=== PATIENT | male | born 1960 | race Caucasian/White ===

== ENCOUNTER 2016-11-20 17:01 | Emergency (ER) | payer SELFPAY ==
[2016-11-20 18:04] VITALS: BP 144/73
--- NOTE | 2016-11-20 18:18 | UC ---
Knee Pain HPI - HPI Summary HPI Summary: slipped at work last night. Left knee twisted and he "did a split". Injured left hip, feels as if he tore groin muscles. Has had a right total knee replacement. Arthritis in left knee, but doesn't bother him too much. Did not fall directly onto left hip. Limping gait today. - History of Current Complaint Chief Complaint: UCLowerExtremity Stated Complaint: LEFT KNEE & HIP INJURY-WC Time Seen by Provider: 11/20/16 18:08 Hx Obtained From: Patient Onset/Duration: Sudden Onset, Lasting Hours - 24 Severity Initially: Moderate Severity Currently: Moderate Character: Dull, Aching, Stiffness Aggravating Factor(s): Movement, Weight Bearing, Prolonged Standing, Stairs Alleviating Factor(s): Rest, Position - slightly flexed Associated Signs And Symptoms: Negative: Swelling, Redness, Bruising, Fever, Weakness, Numbness, Tingling - Risk Factors Septic Arthritis Risk Factor: Negative Gout Risk Factor: Age ^ 39, Male, HTN, Obesity - Allergies/Home Medications Allergies/Adverse Reactions: Allergies Allergy/AdvReac Type Severity Reaction Status Date / Time No Known Allergies Allergy Verified 11/20/16 17:52 Home Medications: Home Medications amLODIPine TAB* [Norvasc TAB*] 1 tab PO BID 11/20/16 [History Confirmed 11/20/16 ] PMH/Surg Hx/FS Hx/Imm Hx Endocrine History Of: Reports: Diabetes Cardiovascular History Of: Reports: Hypertension - ON MEDS, PT. STATES CONTROLLED Denies: Pacemaker/ICD Respiratory History Of: Reports: COPD Denies: Asthma Neurological History Of: Reports: Migraine - Surgical History Surgical History: Yes Surgery Procedure, Year, and Place: L1-2,12-S3 L4-5 LAMINECTOMY 2006, 2009 RT TOTAL KNEE REPLACMENT, cervical fusion - Family History Known Family History: Positive: Hypertension, Diabetes - Social History Occupation: Employed Full-time Lives: With Family Alcohol Use: Rare Substance Use Type: None Smoking Status (MU): Former Smoker Type: Cigarettes When Did the Patient Quit Smoking/Using Tobacco: 1997 - Immunization History Most Recent Influenza Vaccination: unknown Most Recent Tetanus Shot: unknown Most Recent Pneumonia Vaccination: none Review of Systems Constitutional: Negative Skin: Negative Eyes: Negative ENT: Negative Respiratory: Negative Cardiovascular: Negative Gastrointestinal: Negative Genitourinary: Negative Motor: Negative Neurovascular: Negative Musculoskeletal: Arthralgia, Decreased ROM, Myalgia Neurological: Negative Psychological: Negative All Other Systems Reviewed And Are Negative: Yes Physical Exam Triage Information Reviewed: Yes Appearance: Well-Appearing, No Pain Distress, Well-Nourished, Obese Vital Signs: Initial Vital Signs Temp 97.8 F 11/20/16 17:50 Pulse 84 11/20/16 17:50 Resp 16 11/20/16 17:50 BP 144/73 11/20/16 17:50 Pulse Ox 96 11/20/16 17:50 Vital Signs Reviewed: Yes Eye Exam: Normal Neck exam: Normal Respiratory Exam: Normal Cardiovascular Exam: Normal Musculoskeletal Exam: Other - left knee with no visible redness or swelling. Pain on palpation to proximal patella and lateral joint area. Limping gait. Ligaments intact to exam, but exam is difficult due to his pain. Neurological Exam: Normal Psychological Exam: Normal Skin Exam: Normal Diagnostics - Laboratory Diagnostic Studies Completed/Ordered: hip and knee xrays: severe DJD, no acute injury Knee Pain Course/Dx - Differential Dx/Diagnosis Differential Diagnosis/HQI/PQRI: Fracture (Closed), Sprain Provider Diagnoses: left knee sprain; left hip strain Discharge - Discharge Plan Condition: Stable Disposition: HOME Prescriptions: Elastic Bandages & Supports [Knee Brace Adjustable Hin] 1 mis XX DAILY PRN #1 mis PRN Reason: knee pain HYDROcodone/ACETAMIN 5-325 MG* [[place] 5-325 TAB*] 1 - 2 tab PO Q6H PRN #20 tab MDD 6 tab PRN Reason: Pain Patient Education Materials: Knee Sprain (ED) Forms: *Work Release Referrals: Luz Maria Bruno MD [Primary Care Provider] -
--- NOTE | 2016-11-20 20:07 | RAD ---
Indication: Left hip pain. 2 views of the left hip and an AP view of the pelvis demonstrates no fracture. Degenerative changes of the left hip joint is noted. Pelvic ring is intact. IMPRESSION: No fracture is identified. Degenerative changes of both hips are noted.
--- NOTE | 2016-11-20 20:07 | RAD ---
Indication: Knee injury. 4 views of left knee demonstrates joint space narrowing in the medial compartment. Degenerative changes of the patellofemoral joint are noted. No fracture is noted. No joint effusion is identified. IMPRESSION: Degenerative changes of the medial compartment of the left knee as well as the patellofemoral joint.
== END 2016-11-20 20:34 | disposition home or self-care (01) ==
LOC: UCCORT 17:01
DX: S76.012A Strain of muscle, fascia and tendon of left hip, initial encounter (principal); S83.92XA Sprain of unspecified site of left knee, initial encounter; X50.1XXA Overexertion from prolonged static or awkward postures, initial encounter; Y92.9 Unspecified place or not applicable; M16.12 Unilateral primary osteoarthritis, left hip; M17.12 Unilateral primary osteoarthritis, left knee; E11.9 Type 2 diabetes mellitus without complications; I10 Essential (primary) hypertension; Z87.891 Personal history of nicotine dependence
CPT/HCPCS: 99212; G0463

== ENCOUNTER 2017-01-07 05:56 | Inpatient (IN) | payer MEDICARE ==
--- NOTE | 2016-12-30 18:53 | HP ---
HISTORY AND PHYSICAL: DATE OF ADMISSION: 01/07/17 He is coming in to the [facility], 01/07/17, for a left total knee replacement. CHIEF COMPLAINT: Left knee pain. HISTORY OF PRESENT ILLNESS: This 56-year-old man has had severe arthritis of the left knee that has been no longer responsive to nonoperative care and a left total knee was recommended. The patient is status post right total knee replacement. The patient has been seen and checked in my office and carefully evaluated. The goals, risks, and complications of the knee replacement have carefully been reviewed with him and his questions were answered. PAST MEDICAL HISTORY: He has got low back problems. He has not had a heart attack. He does not have chest pain. He has chronic obstructive pulmonary disease. He is overweight. He has diabetes type 2, but he is taking some insulin and sleep apnea. He has hypertension. Other medical problems include hyperlipidemia. PAST SURGICAL HISTORY: He has had past neck surgery anteriorly and posteriorly. DAILY MEDICATIONS: Include: 1. Gabapentin. 2. Symbicort. 3. Metoprolol. 4. Lantus insulin. 5. Tramadol. 6. Amlodipine. 7. Flexeril. 8. Omeprazole. ALLERGIES: None. SOCIAL HISTORY: No smoking. No drinking. REVIEW OF SYSTEMS: No history of kidney problems. No liver problems. No history of blood transfusion or hepatitis. No bleeding tendency. PHYSICAL EXAMINATION VITAL SIGNS: 72 inches in height, 345 pounds. Blood pressure 146/72, respirations 18, pulse 68. MUSCULOSKELETAL: He has a marked limp on the left. The left knee is straight with left knee extension -3 to 4 degrees, flexion 100 degrees. The dorsalis pedis pulse is 2+. The left knee has slight varus and is tender medially, laterally, anteriorly, and posteriorly. There is some swelling of the legs, ankles, and feet bilaterally. Left knee: Stable MCL, stable LCL, normal Ian and posterior drawer. IMAGING: The x-rays showed severe left knee arthritis in the medial compartment with bone on bone. IMPRESSION: Severe arthritis to the left knee. PLAN: Left total knee replacement. [id number]/[facility] #: [id number] [facility]
[2017-01-07] MEDS ORDERED: Famotidine IV* 10 MG/ML 2 ML (20 mg) IV ONE (06:00)
[2017-01-07] MEDS ORDERED: Buffered Lidocaine 1% SYRIN* 3 ML/SYR SYRINGE INTRADERM ONE (06:00)
[2017-01-07] MEDS ORDERED: Dexamethasone IV* 4 MG/ML 1 ML (4 MG) IV SLOW PU ONE (06:00)
[2017-01-07] MEDS ORDERED: Famotidine IV* 10 MG/ML 2 ML (20 mg) ONE (06:04)
[2017-01-07] MEDS ORDERED: ceFAZolin 2 GM PREMIX(*) 2 GM/50 ML BAG IVPB ONE (06:05)
[2017-01-07] MEDS ORDERED: Dexamethasone IV* 4 MG/ML 1 ML (4 MG) ONE (06:05)
[2017-01-07] MEDS ORDERED: Bupivacaine 0.5% W/EPI SDV* 30 ML VIAL ONE ×2 (06:49)
[2017-01-07] MEDS ORDERED: Morphine PF AMP (0.5MG/ML)* 5 MG/10 ML AMP ONE (07:32)
[2017-01-07] MEDS ORDERED: KETAMINE HCL* 50 MG/ML 10 ML VIAL ONE (07:32)
[2017-01-07] MEDS ORDERED: Midazolam* 1 MG/ML 5 ML VIAL (5 MG) ONE ×3 (07:32→10:39)
[2017-01-07] MEDS ORDERED: fentaNYL* 50 MCG/ML 2 ML VIAL (100 MCG VIAL) ONE ×4 (07:32→13:03)
[2017-01-07] MEDS ORDERED: Ondansetron INJ* 2 MG/ML VIAL ONE (07:35)
[2017-01-07] MEDS ORDERED: Propofol* 10 MG/ML 20 ML BTL IV PUSH ONE ×2 (07:35→10:51)
[2017-01-07] MEDS ORDERED: Bupivacaine 0.5% SDV PF* 30 ML VIAL ONE (07:35)
[2017-01-07] MEDS ORDERED: Phenylephrine INJ* 10 MG/ML 1 ML VIAL (10 MG) ONE (08:33)
[2017-01-07] MEDS ORDERED: Scopolamine 1.5 mg* PATCH TRANSDERM PRN (09:30)
[2017-01-07] MEDS ORDERED: DiMENhydriNATE IV* 50 MG/ML VIAL IV PUSH PRN (09:30)
[2017-01-07] MEDS ORDERED: Ondansetron INJ* 2 MG/ML VIAL IV PRN ×2 (09:30→23:00)
[2017-01-07] MEDS ORDERED: oxyCODONE/Acetamin 5/325 MG* TAB PO PRN ×2 (09:30→23:00)
[2017-01-07] MEDS ORDERED: Nalbuphine* 20 MG/ML 1 ML VIAL IV PRN ×2 (09:30)
[2017-01-07] MEDS ORDERED: Naloxone* 0.4 MG/ML 1 ML VIAL IV PRN (09:30)
[2017-01-07] MEDS ORDERED: Acetaminophen TAB* 325 MG PO PRN (11:48)
[2017-01-07] MEDS ORDERED: Nalbuphine* 20 MG/ML 1 ML VIAL ONE ×2 (12:04→15:15)
[2017-01-07] MEDS: fentaNYL* 50 MCG/ML 2 ML VIAL (100 MCG VIAL) IV PRN ×5 (12:12→13:08)
[2017-01-07] MEDS ORDERED: Dextrose 50% Syringe 50 ML* 25 GM/50 ML SYRINGE IV PUSH PRN (12:16)
[2017-01-07] MEDS ORDERED: Insulin LISPRO* 1 UNITS UNIT SUBCUT ONE (12:22)
[2017-01-07] MEDS: Insulin LISPRO* 1 UNITS UNIT SUBCUT SCH ×3 (12:24→22:00)
[2017-01-07] MEDS ORDERED: oxyCODONE/Acetamin 5/325 MG* TAB ONE ×2 (12:31→15:15)
[2017-01-07] MEDS: oxyCODONE/Acetamin 5/325 MG* TAB PO PRN ×2 (12:32→15:20)
--- NOTE | 2017-01-07 12:48 | RAD ---
Indication: Left total knee replacement. 2 views of the left knee demonstrates bipolar knee arthroplasty in satisfactory position. Drainage catheter is in place. IMPRESSION: Bipolar knee arthroplasty in satisfactory position.
[2017-01-07] MEDS ORDERED: HYDROmorphone* 1 MG/ML 1 ML SYR ONE (13:30)
[2017-01-07] MEDS: HYDROmorphone* 1 MG/ML 1 ML SYR IV PRN ×2 (13:32→13:40)
[2017-01-07] MEDS: ceFAZolin 1 GM in Dextrose (*) 1 GM/50 ML BAG IVPB SCH ×2 (16:12→22:01)
[2017-01-07] MEDS: Metoprolol Tartrate TAB* 25 MG PO SCH (18:05)
--- NOTE | 2017-01-07 21:42 | CONS ---
CONSULTATION REPORT:* ADDENDUM: Mr. Mahmood is a 56-year-old male with a history of diabetes, obstructive sleep apnea, and hypertension who is status post elective left knee surgery performed by Dr. Perez today. Medicine consultation was requested for postoperative management of the patient's chronic medical conditions. For further details of the patient's consultation, please see dictated report by Haydee Greer NP, that was done on 01/07/17 with which I agree. [id number]/[facility] #: [id number] [facility]
[2017-01-07] MEDS: Cyclobenzaprine TAB* 10 MG PO SCH (21:53)
[2017-01-07] MEDS: Gabapentin CAP(*) 300 MG PO SCH (21:54)
[2017-01-07] MEDS: amLODIPine TAB* 5 MG PO SCH (21:54)
[2017-01-07] MEDS: Docusate CAP* 100 MG PO SCH (21:56)
[2017-01-07] MEDS: Insulin GLARGINE(*) 1 UNITS UNIT SUBCUT SCH (21:57)
--- NOTE | 2017-01-07 21:59 | CONS ---
ATTENDING PHYSICIAN'S ADDENDUM NOW INCLUDED ON THIS REPORT CONSULTATION REPORT: DATE OF CONSULT: 01/07/17 PRIMARY CARE PROVIDER: Dr. Luz Maria Bruno. ATTENDING PHYSICIAN: Dr. Alla Barajas*(dictated by Haydee Mccoy NP). PHYSICIAN REQUESTING CONSULTATION: Dr. Owen Perez. REASON FOR CONSULTATION: Co-medical management in a patient with a history of diabetes mellitus, obstructive sleep apnea, COPD, obesity, and hypertension. HISTORY OF PRESENT ILLNESS: Mr. Mahmood is a 56-year-old male with past medical history significant for diabetes mellitus, spinal stenosis, diabetic neuropathy , LAI with CPAP use, COPD, obesity, hypertension, and severe arthritis of the left knee. Mr. Mahmood underwent an elective left total knee arthroplasty with Dr. Perez today. Postoperatively, the patient is feeling well with the exception of itching and left knee pain. The patient states that leading up to his surgery,he has been in a good state of health with the exception of left knee pain. The patient also states that his glucoses have been elevated at home ranging from 240 to 300. He denies any chest pain, shortness of breath, fever, or chills. The patient has numbness and tingling at baseline in his bilateral lower extremities. The patient also reports a cough that started postoperatively in addition to itching. The Hospitalists were asked to assist with management of this patient during the postoperative period. PAST MEDICAL HISTORY: 1. Diabetes mellitus. 2. Spinal stenosis. 3. Diabetic neuropathy. 4. LAI, the patient uses CPAP. 5. COPD. 6. Obesity. 7. Hypertension. 8. Arthritis. PAST SURGICAL HISTORY: 1. Status post right total knee arthroplasty in 2011. 2. Status post cervical diskectomy at C4 to C6 in 2016. 3. Status post laminectomy. 4. Status post bilateral carpal tunnel release. 5. Status post tonsillectomy and adenoidectomy as a child. HOME MEDICATIONS: Include: 1. Gabapentin 300 mg oral twice daily. 2. Symbicort 160/4.5 inhalation twice daily. 3. Metoprolol 50 mg oral in the morning and 25 mg oral in the morning. 4. Lantus insulin 40 units subcutaneous twice a day with his morning and evening meals. 5. Tramadol 100 mg oral 4 times daily. 6. Amlodipine/benazepril 5/20 one tablet oral twice daily. 7. Flexeril 10 mg oral daily at bedtime. 8. Omeprazole 20 mg oral daily. 9. Albuterol 0.63 - 3 mL nebulizer 1 neb as needed for shortness of breath or wheeze. 10. Ibuprofen 800 mg oral every 6 hours as needed for pain. ALLERGIES: No known drug allergies. FAMILY HISTORY: The patient has a family history of an aunt with diabetes mellitus. Denies any family history of coronary artery disease. The patient has a history of a sister with metastatic lung cancer. SOCIAL HISTORY: The patient is a former smoker. He quit approximately 20 years ago and smoked 2 packs a day for 20 years. The patient is a recovered alcoholic. The patient denies any recreational drug use. The patient works part -time as a sales associates. The patient is and lives with his , Earnest Mahmood. His will be his surrogate decision maker in the event he is unable to make decisions for himself. REVIEW OF SYSTEMS: I performed a 14-point review of systems. All the pertinent positives and negatives are mentioned in the history of present illness. The remaining review of systems are negative. PHYSICAL EXAMINATION: Vital Signs: Temperature 98.4, heart rate 107, respiratory rate 16, O2 sat 98% on 2 L via nasal cannula, blood pressure 163/ 89. Appearance: The patient is alert and appears to be in no acute distress. HEENT: Normocephalic, atraumatic. Pupils are equal and reactive to light. Extraocular movements are intact. Neck: Supple. There is no lymphadenopathy noted. Cardiovascular: Regular rate and rhythm. S1, S2 were crisp. There are no murmurs, rubs, or gallops heard. Extremities: There is no lower extremity edema. DP and PT pulses are 2+ and symmetric. Respiratory: There is no accessory muscle use and the lungs are clear to auscultation bilaterally. Abdomen was soft, nontender, nondistended. There are bowel sounds present x4. Musculoskeletal: There is no clubbing or cyanosis noted. The patient exhibits good strength in all extremities. Skin: There is a dressing on the patient's left knee that is clean, dry, and intact with a Hemovac drain in place. Neurological: Cranial nerves II through XII are grossly intact. The patient moves all extremities. Psychological: The patient is calm and cooperative. DIAGNOSTIC STUDIES/LAB DATA: Preoperative laboratory data from 12/30/16: Sodium 136, potassium 4.7, chloride 97, CO2 32, BUN 12, creatinine 0.73, glucose 235. White blood cell count 13.1, hemoglobin 15.5, hematocrit 47, and platelet count 277. Preoperative EKG from 12/18/16 shows a normal sinus rhythm with a rate of 78. Left knee x-ray from today, radiologist's impression: Bipolar knee arthroplasty in satisfactory position. IMPRESSION: Mr. Mahmood is a 56-year-old male with past medical history significant for diabetes mellitus, spinal stenosis, obstructive sleep apnea, chronic obstructive pulmonary disease, obesity, hypertension, and arthritis who underwent an elective left total knee arthroplasty with Dr. Perez today. Hospitalists were asked to assist with the co-management of this patient during his hospitalization. 1. Status post left total knee arthroplasty. Management will be per Orthopedic Surgery. The patient will have his H and H trended. He will have Occupational and Physical Therapy evaluations. The patient will have urinary catheter in place through postop day 1. 2. Hypertension. The patient has been intermittently hypertensive in the recovery room with systolic blood pressures in the 170s. The patient did have several elevated diastolics. I suspect this is related to a poorly fitting blood pressure cuff and once the blood pressure cuff was changed, the patient's blood pressures have improved. The patient will be continued on his home metoprolol tartrate and amlodipine. At this time, we will hold the patient's benazepril and consider restarting in the morning based off of where his blood pressures are. 3. Chronic obstructive pulmonary disease. The patient will be continued on his home Symbicort. 4. Obstructive sleep apnea. The patient will be continued on his home CPAP. 5. Diabetes mellitus. The patient will have fingersticks a.c. and h.s. He will be continued on his home Lantus of 40 units twice daily in addition to lispro sliding scale. 6. Cervicalgia. The patient will be continued on his home gabapentin and have Percocet as needed for pain. 7. Fluids, electrolytes, and nutrition. The patient will be on a consistent carbohydrate diet. 8. DVT prophylaxis. The patient will be on 325 mg of aspirin per Orthopedic Surgery. 9. Code status. Full code. 10. Disposition. Inpatient. Disposition per Orthopedic Surgery. TIME SPENT: The time for this consultation was 60 minutes and 30 minutes were spent with the patient and discussing medications, past medical history, and the events leading up to his arrival today and performing a physical examination. The case has been reviewed with the attending, Dr. Barajas, who agrees with the plan of care. Reviewed by JEFFREY JADE 01/08/17 1037 ADDENDUM: Mr. Mahmood is a 56-year-old male with a history of diabetes, obstructive sleep apnea, and hypertension who is status post elective left knee surgery performed by Dr. Perez today. Medicine consultation was requested for postoperative management of the patient's chronic medical conditions. For further details of the patient's consultation, please see dictated report by Haydee Mccoy NP, that was done on 01/07/17 with which I agree. ALLA BARAJAS MD CC: Dr. Perez; Dr. Luz Maria Bruno* [id number]/[facility] #: [id number]/[facility] #: [id number] [place]
--- NOTE | 2017-01-08 03:24 | OP ---
DATE OF OPERATION: 01/07/17 - ROOM #347 DATE OF : 58 SURGEON: Owen Perez MD CLINICAL REIMBURSEMENT SPECIALIST: 1. BRYAN Cormier 2. BRYAN Pizarro ANESTHESIOLOGIST: Dr. Donato. ANESTHESIA: Spinal with Duramorph, IV sedation. PRE-OP DIAGNOSIS: Severe arthritis of the left knee. POST-OP DIAGNOSIS: Severe arthritis of the left knee. OPERATIVE PROCEDURE: Left total knee replacement. COMPONENTS UTILIZED: Nash Persona knee a size 10 femur, a size G tibia, a 10 articular surface and a 38 patella. The tibial component has a knob extension. All components cemented. COMPLICATIONS: There were no complications. DRAINS: Two blood collection drains left knee at the end of the case. BLOOD LOSS: 250 mL. REPLACEMENT: Crystalloid fluids. INDICATIONS: Severe arthritis of the left knee that has been no longer responsive to nonoperative care and a left total knee replacement was recommended. The patient has a right total knee replacement done several years ago. DESCRIPTION OF PROCEDURE: The patient was brought to the operating room, placed on the operating room table in a supine position following the administration of spinal anesthetic with Duramorph. The patient was returned to the supine position, a Bingham catheter was inserted. The left proximal thigh was wrapped with a tourniquet. The left leg was then given a preliminary chlorhexidine prep and then a formal surgical prep with ChloraPrep from the tourniquet to the tips of the toes. After prepping, draping, and sealing off carefully, we did our universal protocol time-out confirming Griffin Timoteo and a plan for left total knee replacement. We all agreed and we proceeded. A surgical care was done without tourniquet and the knee mainly acutely flexed with the foot on a foot piece until the clean up and cementing phase of the case. After a universal protocol time-out we proceeded. The skin incision went from three fingerbreadths proximal to the superior pole of the patella to the medial aspect of the tibial tubercle. Careful hemostasis was checked and achieved throughout the case utilizing electrocautery. The knee was entered and the surgical incision was in the anterior midline. We then went medial peripatellar for going into the knee dividing the quadriceps tendon 4 cm proximal to the superior pole of the patella at the junction of the rectus femoris and the vastus medialis tendon to stay as close to vastus medialis muscle for good tendon healing. The knee has clear goldish synovial fluid abundant amount. The knee was entered medial parapatellar and the patella was retracted laterally. The soft tissues medially were divided down to the bone on the tibia just medial to the tibial tubercle going from the joint line distally. The medial tissues on the tibia were elevated subperiosteally going around to the deep MCL and then to the posterior medial corner of the knee staying right on the bone. The remains of the anterior medial meniscus were carefully excised. The patella was made so that it could be everted. We proceeded with synovectomy around the patella and the infrapatellar fat pad. Lateral meniscus was carefully excised and the intercondylar osteophytes were removed and the ACL and PCL were carefully uplifted from their femoral origins and the tibia was made so that it could be subluxated forward from under the femur. Great care was taken while working posteriorly with careful hemostasis checked and achieved. The distal anterior femur was exposed subperiosteally for referencing and measuring. At this stage, we had nice visualization of the tibia. Proximal tibial cut was completed and the goal of this cut was to have a tibial surface that will be perpendicular long axis of the tibia and have a slight posterior slope removing a centimeter laterally and couple millimeters medially. We then went into the femoral intramedullary canal and suctioned carefully to discourage embolization. The distal femoral cutting guide was applied on to with 6 degrees of valgus and the distal femoral cuts were completed. The femur was then measured to the size 10 was chosen, the 10 block was placed on and the Chamfering cuts and the anterior and posterior cuts were completed. At this stage we had nice ligamentous balance in extension with a 10 mm block and a 90 degrees of flexion. We finished removal of the posterior horn medial meniscus carefully preserving the MCL, posterior medial femoral condyle osteophyte was excised and we finished removal of the PCL and the posterior horn lateral meniscus as well. The lateral geniculate was carefully coagulated. The tibia was then completed for a size G and the knee was articulated and extended with a G tibia 10 articular surface and 10 femur with full knee extension, stable ligaments in extension and stable ligaments in 90 degrees of flexion. The patella was cut flat. A 38 was chosen, 3 drill holes were made. These were undercut and a lateral release was not necessary. The leg was then exsanguinated, the tourniquet elevated to 300 and we proceeded with cleaning the femoral canal x6 with saline, suctioning it empty, and then inserting a bone plug. The knee was cleaned in extension with lamina bushler basin and 2.5 L of pulsed saline. The knee was then cleaned in flexion and all bony surfaces were cleaned carefully and dried. The cement was mixed and the components which had been checked for accuracy, sidedness and date were cemented into position; patella, followed by tibia, followed by femur, each was impacted, excess cement was removed. The knee was articulated and extended during the final hardening and we flexed several times to make sure that none of the cement was in the wrong place prior to hardening. All excess cement was removed. We checked posteriorly for retained cement and bleeding points. The tourniquet was deflated and we irrigated several times during the closure with saline. The pericapsular tissues were infiltrated with Marcaine 0.5% with epinephrine posteromedially, medially, laterally and in the subcu anteriorly and in the quadriceps some. We then proceeded with the closure, the quad mechanism closed with interrupted #1 Polysorbs in [id number] fashion. We also used some #2 Ti- Crons in [id number] fashion and then finished with #1 Polysorb, once again down to the medial retinaculum more distally we used 0 Polysorb. The drains were brought out superolaterally, irrigated again and the remainder of the Marcaine was inserted. The deep subcu closed with interrupted #1 Polysorb, superficial subcu closed with 3-0 Polysorb, and then sybil on the skin. The skin was washed and dried and covered with Betadine soaked release followed by sterile gauze, sterile Webril, cryotherapy cuff, ABD pads, further Webril and then a 6 inch Tim bandage loosely applied. The dorsalis pedis pulse was 2+ at the end of the case. The knee was also flexed several times fully during the closure to promote the patient's rehab. The patient was returned to the hospital bed into recovery room in stable and satisfactory condition having tolerated the procedure very well. CC: Dr. Luz Maria Bruno, [facility] * [id number]/[facility] #: [id number] [place]
[2017-01-08] MEDS: oxyCODONE/Acetamin 5/325 MG* TAB PO PRN ×3 (04:30→17:33)
[2017-01-08] MEDS: ceFAZolin 1 GM in Dextrose (*) 1 GM/50 ML BAG IVPB SCH (04:32)
[2017-01-08 06:59] LABS: Hematocrit 40 % (42-52); Hemoglobin 13.2 g/dl (14.0-18.0)
[2017-01-08 07:07] LABS: BUN/Creatinine Ratio 19.1 (8-20); Calcium 8.9 mg/dL (8.6-10.3); EGFR African American 154.6 (>60); EGFR Non-African American 120.2 (>60); Potassium 3.9 mmol/L (3.5-5.0)
[2017-01-08] MEDS: oxyCODONE TAB* 5 MG TAB PO PRN ×2 (07:36→21:16)
[2017-01-08] MEDS: Insulin GLARGINE(*) 1 UNITS UNIT SUBCUT SCH ×2 (08:22→21:17)
[2017-01-08] MEDS: Insulin LISPRO* 1 UNITS UNIT SUBCUT SCH ×4 (08:23→21:18)
[2017-01-08] MEDS: Docusate CAP* 100 MG PO SCH ×2 (08:25→21:15)
[2017-01-08] MEDS: Vitamin THERAPEUTIC TAB PO SCH (08:25)
[2017-01-08] MEDS: Aspirin TAB* 325 MG PO SCH (08:25)
[2017-01-08] MEDS: Omeprazole CAP* 20 MG PO SCH (08:25)
[2017-01-08] MEDS: amLODIPine TAB* 5 MG PO SCH ×2 (08:25→21:15)
[2017-01-08] MEDS: Metoprolol Tartrate TAB* 50 mg PO SCH (08:26)
[2017-01-08] MEDS: Gabapentin CAP(*) 300 MG PO SCH ×2 (08:26→21:15)
[2017-01-08] MEDS: Metoprolol Tartrate TAB* 25 MG PO SCH (17:30)
--- NOTE | 2017-01-08 18:32 | PN ---
Subjective Date of Service: 01/08/17 Interval History: This is a 56 yo gentleman with IDDM, peripheral neuropathy, SOA, COPD, obesity and HTN who is POD #1 s/p L TKA. Hospitalist comanaging. Patient reports no acute complaints. Noted hyperglycemia. Patient reports rather poor control at home. He states Lantus was recently increased to current dose of 40U bid from 32U bid. Reports moderate compliance to diabetic diet. Denies CP, sig post op pain, abd pain, SOB, n/v. Objective Active Medications: Acetaminophen (Tylenol Tab*) 650 mg PO Q4H PRN PRN Reason: pain or temp Amlodipine Besylate (Norvasc Tab*) 5 mg PO BID COUNT INCLUDES THE [facility] Last Admin: 01/08/17 08:25 Dose: 5 mg Aspirin (Aspirin Tab*) 325 mg PO DAILY COUNT INCLUDES THE [facility] Last Admin: 01/08/17 08:25 Dose: 325 mg Cyclobenzaprine HCl (Flexeril Tab*) 10 mg PO BEDTIME COUNT INCLUDES THE [facility] Last Admin: 01/07/17 21:53 Dose: 10 mg Dextrose (D50w Syringe 50 Ml*) 12.5 gm IV PUSH .FOR FS < 60 - SS PRN PRN Reason: FS < 60 Diphenhydramine HCl (Benadryl Iv*) 25 mg IV Q6H PRN PRN Reason: itching or insomnia Docusate Sodium (Colace Cap*) 100 mg PO BID COUNT INCLUDES THE [facility] Last Admin: 01/08/17 08:25 Dose: 100 mg Gabapentin (Neurontin Cap(*)) 300 mg PO BID COUNT INCLUDES THE [facility] Last Admin: 01/08/17 08:26 Dose: 300 mg Lactated Ringer's (Lactated Ringers 1000 Ml Bag*) 1,000 mls @ 125 mls/hr IV PER RATE COUNT INCLUDES THE [facility] Last Admin: 01/08/17 00:53 Dose: 125 mls/hr Insulin Glargine (Lantus(*)) 45 units SUBCUT BID COUNT INCLUDES THE [facility] Insulin Human Lispro (Humalog*) 0 units SUBCUT ACHS COUNT INCLUDES THE [facility] PRN Reason: Protocol Last Admin: 01/08/17 17:30 Dose: 12 units Magnesium Hydroxide (Milk Of Magnesia Liq*) 30 ml PO Q6H PRN PRN Reason: constipation Metoprolol Tartrate (Lopressor Tab*) 25 mg PO QPM COUNT INCLUDES THE [facility] Last Admin: 01/08/17 17:30 Dose: 25 mg Metoprolol Tartrate (Lopressor Tab*) 50 mg PO QAM COUNT INCLUDES THE [facility] Last Admin: 01/08/17 08:26 Dose: 50 mg Morphine Sulfate (Morphine Inj (Syringe)*) 2 mg IV Q30M PRN PRN Reason: PAIN - UNCONTROLLED Multivitamins (Theragran Tab*) 1 tab PO DAILY COUNT INCLUDES THE [facility] Last Admin: 01/08/17 08:25 Dose: 1 tab Omeprazole (Prilosec Cap*) 20 mg PO DAILY COUNT INCLUDES THE [facility] Last Admin: 01/08/17 08:25 Dose: 20 mg Ondansetron HCl (Zofran Inj*) 4 mg IV Q6H PRN PRN Reason: nausea Oxycodone HCl (Roxycodone Tab*) 10 mg PO Q4H PRN PRN Reason: PAIN - SEVERE Last Admin: 01/08/17 07:36 Dose: 10 mg Oxycodone/Acetaminophen (Percocet 5/325 Tab*) 1 tab PO Q3H PRN PRN Reason: PAIN - MILD TO MODERATE Oxycodone/Acetaminophen (Percocet 5/325 Tab*) 2 tab PO Q3H PRN PRN Reason: PAIN - MODERATE TO SEVERE Last Admin: 01/08/17 17:33 Dose: 2 tab Pharmacy Profile Note (Scopolomine Patch Remove*) 1 note PATCH OFF .AFTER 72 HOURS COUNT INCLUDES THE [facility] Stop: 01/10/17 10:01 Scopolamine (Transderm-Scop 1.5 Mg Patch*) 1 patch TRANSDERM Q72H PRN PRN Reason: NAUSEA/VOMITING Vital Signs: Temp Pulse Resp BP Pulse Ox 97.8 F 91 18 147/68 98 01/08/17 16:31 01/08/17 16:31 01/08/17 17:33 01/08/17 16:31 01/08/17 16:31 Appearance: Well appearing in NAD Neck: NL Appearance and Movements; NL JVP Respiratory: Symmetrical Chest Expansion and Respiratory Effort, Clear to Auscultation Cardiovascular: NL Sounds; No Murmurs; No JVD, RRR Abdominal: NL Sounds; No Tenderness; No Distention Extremities: No Edema Skin: No Rash or Ulcers Neurological: Alert and Oriented x 3 Result Diagrams: 01/08/17 06:36 01/08/17 06:36 Assess/Plan/Problems-Billing Assessment: This is a 56 yo gentleman with obesity, poorly controlled DM, HTN, peripheral neuropathy, COPD, and LAI compliant with CPAP who is s/p L TKR. Hospitalists comanaging for multiple comorbid conditions. - Patient Problems (1) S/P TKR (total knee replacement) Comment: POD #1 dc planning, pain control and DVT prophylaxis per ortho (2) IDDM (insulin dependent diabetes mellitus) Comment: Poorly controlled Noted hyperglycemia post-op Will check HgbA1c Will increase Lantus, cont SS Humalog (3) LAI (obstructive sleep apnea) Comment: Using CPAP from home (4) COPD (chronic obstructive pulmonary disease) Comment: No acute exacerbation No inhaled medications noted on home medication list (5) Peripheral neuropathy (6) HTN (hypertension) Comment: Moderate HTN today FILIPPO-I will be resumed tomorrow am Cont amlodipine (7) Obesity Comment: BMI 33 Status and Disposition: DC planning per ortho, no acute medical concerns. Hospitalists will continue to follow along.
[2017-01-08] MEDS: Cyclobenzaprine TAB* 10 MG PO SCH (21:15)
[2017-01-08] MEDS: Magnesium Hydroxide LIQ* 30 ML UDC PO PRN (21:16)
[2017-01-08] MEDS ORDERED: diPHENhydraMINE IV* 50 MG/ML 1 ml VIAL (BENADRYL) IV PRN (23:00)
[2017-01-08] MEDS: Morphine INJ* 2 MG/ML 1 ML SYRINGE IV PRN (23:55)
[2017-01-09] MEDS: oxyCODONE/Acetamin 5/325 MG* TAB PO PRN ×4 (03:27→22:11)
[2017-01-09] MEDS: Morphine INJ* 2 MG/ML 1 ML SYRINGE IV PRN (03:29)
[2017-01-09 07:23] LABS: Hematocrit 40 % (42-52); Hemoglobin 13.1 g/dl (14.0-18.0)
[2017-01-09] MEDS: oxyCODONE TAB* 5 MG TAB PO PRN ×2 (07:31→12:33)
[2017-01-09] MEDS: Insulin LISPRO* 1 UNITS UNIT SUBCUT SCH ×4 (07:32→22:13)
[2017-01-09] MEDS: Magnesium Hydroxide LIQ* 30 ML UDC PO PRN (08:13)
[2017-01-09] MEDS: Insulin GLARGINE(*) 1 UNITS UNIT SUBCUT SCH ×2 (08:13→22:12)
[2017-01-09] MEDS: Gabapentin CAP(*) 300 MG PO SCH ×2 (08:15→22:11)
[2017-01-09] MEDS: Aspirin TAB* 325 MG PO SCH (08:15)
[2017-01-09] MEDS: amLODIPine TAB* 5 MG PO SCH ×2 (08:15→22:10)
[2017-01-09] MEDS: Docusate CAP* 100 MG PO SCH ×2 (08:15→21:41)
[2017-01-09] MEDS: Omeprazole CAP* 20 MG PO SCH (08:16)
[2017-01-09] MEDS: Enalapril TAB* 5 MG PO SCH (08:16)
[2017-01-09] MEDS: Vitamin THERAPEUTIC TAB PO SCH (08:16)
[2017-01-09] MEDS: Metoprolol Tartrate TAB* 50 mg PO SCH (08:16)
[2017-01-09] MEDS ORDERED: Diazepam TAB(*) 5 MG PO PRN ×2 (09:23→09:32)
[2017-01-09] MEDS ORDERED: Bisacodyl SUPP* 10 MG SUPP PR PRN (13:10)
--- NOTE | 2017-01-09 14:13 | PN ---
Subjective Date of Service: 01/09/17 Interval History: Patient reports having some nausea today. He denies abdominal pain, but reports a bloated sensation. He hasn't had a BM in ~ 4 days. He reports good pain control. Denies CP, SOB. Objective Active Medications: Acetaminophen (Tylenol Tab*) 650 mg PO Q4H PRN PRN Reason: pain or temp Amlodipine Besylate (Norvasc Tab*) 5 mg PO BID [facility] Last Admin: 01/09/17 08:15 Dose: 5 mg Aspirin (Aspirin Tab*) 325 mg PO DAILY [facility] Last Admin: 01/09/17 08:15 Dose: 325 mg Bisacodyl (Dulcolax Supp*) 10 mg CO DAILY PRN PRN Reason: CONSTIPATION Cyclobenzaprine HCl (Flexeril Tab*) 10 mg PO BEDTIME [facility] Last Admin: 01/08/17 21:15 Dose: 10 mg Dextrose (D50w Syringe 50 Ml*) 12.5 gm IV PUSH .FOR FS < 60 - SS PRN PRN Reason: FS < 60 Diazepam (Valium Tab(*)) 5 mg PO Q6H PRN PRN Reason: PAIN Diazepam (Valium Tab(*)) 5 mg PO BEDTIME PRN PRN Reason: ONE EXTRA DOSE EACH NIGHT Diphenhydramine HCl (Benadryl Iv*) 25 mg IV Q6H PRN PRN Reason: itching or insomnia Docusate Sodium (Colace Cap*) 100 mg PO BID [facility] Last Admin: 01/09/17 08:15 Dose: 100 mg Enalapril Maleate (Vasotec Tab*) 10 mg PO DAILY [facility] Last Admin: 01/09/17 08:16 Dose: 10 mg Gabapentin (Neurontin Cap(*)) 300 mg PO BID [facility] Last Admin: 01/09/17 08:15 Dose: 300 mg Lactated Ringer's (Lactated Ringers 1000 Ml Bag*) 1,000 mls @ 125 mls/hr IV PER RATE [facility] Last Admin: 01/08/17 00:53 Dose: 125 mls/hr Insulin Glargine (Lantus(*)) 45 units SUBCUT BID [facility] Last Admin: 01/09/17 08:13 Dose: 45 unit Insulin Human Lispro (Humalog*) 0 units SUBCUT ACHS [facility] PRN Reason: Protocol Last Admin: 01/09/17 12:28 Dose: 6 units Magnesium Hydroxide (Milk Of Magnesia Liq*) 30 ml PO Q6H PRN PRN Reason: constipation Last Admin: 01/09/17 08:13 Dose: 30 ml Metoprolol Tartrate (Lopressor Tab*) 25 mg PO QPM [facility] Last Admin: 01/08/17 17:30 Dose: 25 mg Metoprolol Tartrate (Lopressor Tab*) 50 mg PO QAM [facility] Last Admin: 01/09/17 08:16 Dose: 50 mg Morphine Sulfate (Morphine Inj (Syringe)*) 2 mg IV Q30M PRN PRN Reason: PAIN - UNCONTROLLED Last Admin: 01/09/17 03:29 Dose: 2 mg Multivitamins (Theragran Tab*) 1 tab PO DAILY [facility] Last Admin: 01/09/17 08:16 Dose: 1 tab Omeprazole (Prilosec Cap*) 20 mg PO DAILY [facility] Last Admin: 01/09/17 08:16 Dose: 20 mg Ondansetron HCl (Zofran Inj*) 4 mg IV Q6H PRN PRN Reason: nausea Last Admin: 01/08/17 23:55 Dose: 4 mg Oxycodone HCl (Roxycodone Tab*) 10 mg PO Q4H PRN PRN Reason: PAIN - SEVERE Last Admin: 01/09/17 12:33 Dose: 10 mg Oxycodone/Acetaminophen (Percocet 5/325 Tab*) 1 tab PO Q3H PRN PRN Reason: PAIN - MILD TO MODERATE Oxycodone/Acetaminophen (Percocet 5/325 Tab*) 2 tab PO Q3H PRN PRN Reason: PAIN - MODERATE TO SEVERE Last Admin: 01/09/17 09:42 Dose: 2 tab Pharmacy Profile Note (Scopolomine Patch Remove*) 1 note PATCH OFF .AFTER 72 HOURS [facility] Stop: 01/10/17 10:01 Scopolamine (Transderm-Scop 1.5 Mg Patch*) 1 patch TRANSDERM Q72H PRN PRN Reason: NAUSEA/VOMITING Vital Signs: Temp Pulse Resp BP Pulse Ox 99.0 F 84 18 142/65 96 01/09/17 11:44 01/09/17 12:11 01/09/17 12:33 01/09/17 11:44 01/09/17 11:44 Oxygen Devices in Use Now: None Appearance: Well appearing, in NAD. Eating lunch. Neck: NL Appearance and Movements; NL JVP Respiratory: Symmetrical Chest Expansion and Respiratory Effort Cardiovascular: NL Sounds; No Murmurs; No JVD, RRR Abdominal: NL Sounds; No Tenderness; No Distention Extremities: No Edema Skin: No Rash or Ulcers Neurological: Alert and Oriented x 3 Result Diagrams: 01/09/17 06:50 01/08/17 06:36 Assess/Plan/Problems-Billing Assessment: This is a 56 yo gentleman with obesity, poorly controlled DM, HTN, peripheral neuropathy, COPD, and LAI compliant with CPAP who is s/p L TKR. Hospitalists comanaging for multiple comorbid conditions. - Patient Problems (1) S/P TKR (total knee replacement) Comment: POD #2 dc planning, pain control and DVT prophylaxis per ortho (2) IDDM (insulin dependent diabetes mellitus) Comment: Poorly controlled HgbA1c 11.3% Noted hyperglycemia post-op Lasntus increased to 45U bid with positive effect, recommend continuing to titrate up by 3-5 U every 3-5 days Cont SS Humalog (3) Constipation Comment: Patient's complaints of nausea and bloating is likely due to constipation Patient has utilized 2 doses of mag citrate without good effect He would like to try a suppository which has been ordered for him (4) LAI (obstructive sleep apnea) Comment: Using CPAP from home (5) COPD (chronic obstructive pulmonary disease) Comment: No acute exacerbation No inhaled medications noted on home medication list (6) Peripheral neuropathy (7) HTN (hypertension) Comment: Moderate HTN today FILIPPO-I has been restarted Cont amlodipine (8) Obesity Comment: BMI 33 Status and Disposition: DC planning per ortho, no acute medical concerns. Hospitalists will continue to follow along.
[2017-01-09] MEDS ORDERED: Sodium Phosphate ADULT ENEMA* 118 ml bottle PR ONE (16:00)
[2017-01-09] MEDS: Metoprolol Tartrate TAB* 25 MG PO SCH (17:45)
[2017-01-09] MEDS: Cyclobenzaprine TAB* 10 MG PO SCH (22:11)
[2017-01-10] MEDS: oxyCODONE/Acetamin 5/325 MG* TAB PO PRN ×3 (03:29→11:34)
[2017-01-10 07:01] LABS: Hematocrit 36 % (42-52); Hemoglobin 12.2 g/dl (14.0-18.0)
[2017-01-10] MEDS: Aspirin TAB* 325 MG PO SCH (08:08)
[2017-01-10] MEDS: Enalapril TAB* 5 MG PO SCH (08:08)
[2017-01-10] MEDS: amLODIPine TAB* 5 MG PO SCH (08:08)
[2017-01-10] MEDS: Omeprazole CAP* 20 MG PO SCH (08:08)
[2017-01-10] MEDS: Gabapentin CAP(*) 300 MG PO SCH (08:08)
[2017-01-10] MEDS: Vitamin THERAPEUTIC TAB PO SCH (08:08)
[2017-01-10] MEDS: Metoprolol Tartrate TAB* 50 mg PO SCH (08:08)
[2017-01-10] MEDS: Docusate CAP* 100 MG PO SCH (08:08)
[2017-01-10] MEDS: Insulin LISPRO* 1 UNITS UNIT SUBCUT SCH (08:09)
[2017-01-10] MEDS: Insulin GLARGINE(*) 1 UNITS UNIT SUBCUT SCH (08:10)
[2017-01-10 08:16] VITALS: BP 165/75
[2017-01-10] MEDS ORDERED: Scopolomine PATCH Remove* 1 NOTE MISC PATCH OFF SCH (10:00)
--- NOTE | 2017-01-10 10:04 | PN ---
Progress Note - Progress Note SOAP: Subjective: [56 y/o male s/p L TKA 01/[address] Perez. Patient reports feeling better then yesterday, eager for D/C home. Working with PT, however still unsteady gait per PT notes, not able to do stairs. At home, patient is able to stay on one level. Pain controlled, mild nausea with pain meds on empty stomach. Feels constipated- s/p enema, suppository. ] Objective: [General- Well appearing, sitting comfortably, dressed. MSK- Dressing removed L knee, no drainage noted, no erythema/ inflammation. sybil intact. minimal pain with light palpation. ] Vital Signs Temp 98.6 F 01/10/17 08:34 Pulse 114 01/10/17 08:00 Resp 16 01/10/17 08:18 BP 165/75 01/10/17 08:00 Pulse Ox 97 01/10/17 08:00 Intake & Output 01/09/17 01/10/17 01/10/17 18:59 06:59 18:59 Intake Total 1880 1854 560 Output Total 1850 3000 Balance 30 -1146 560 Intake: IV Fluids 950 LR 950 IVPB 104 ABX - CEFAZOLIN 104 Oral 1880 800 560 Output: Urine 1850 3000 Laboratory Results - last 24 hr 01/09/17 01/09/17 01/09/17 11:51 17:32 22:03 Hgb Hct POC Glucose (mg/dL) 228 H 278 H 206 H 01/10/17 01/10/17 06:16 07:58 Hgb 12.2 L Hct 36 L POC Glucose (mg/dL) 176 H Assessment: [56 y/o male s/p L TKA 01/[address] Perez.] Plan: [- Constipation- Continue laxatives, stool softener at home - DM- management per medicine, script for lantus due to increased BG - DVT prophy- heparin while inpt, ASA 325 daily at home - HOme care nursing/ PT @ D/C - FOllow up with DR. Perez x 4-6 weeks ] Active Medications Generic Name Dose Route Start Last Admin Trade Name Freq PRN Reason Stop Dose Admin Acetaminophen 650 mg 01/07/17 11:48 Tylenol Tab* PO Q4H PRN pain or temp Amlodipine Besylate 5 mg 01/07/17 21:00 01/10/17 08:08 Norvasc Tab* PO 5 mg BID ZAIN Administration Aspirin 325 mg 01/08/17 09:00 01/10/17 08:08 Aspirin Tab* PO 325 mg DAILY ZAIN Administration Bisacodyl 10 mg 01/09/17 13:10 01/09/17 14:45 Dulcolax Supp* AR 10 mg DAILY PRN Administration CONSTIPATION Cyclobenzaprine HCl 10 mg 01/07/17 21:00 01/09/17 22:11 Flexeril Tab* PO 10 mg BEDTIME ZAIN Administration Dextrose 12.5 gm 01/07/17 12:16 D50w Syringe 50 Ml* IV PUSH .FOR FS < 60 - SS PRN FS < 60 Diazepam 5 mg 01/09/17 09:23 Valium Tab(*) PO Q6H PRN PAIN Diazepam 5 mg 01/09/17 09:32 Valium Tab(*) PO BEDTIME PRN ONE EXTRA DOSE EACH NIGHT Diphenhydramine HCl 25 mg 01/08/17 23:00 Benadryl Iv* IV Q6H PRN itching or insomnia Docusate Sodium 100 mg 01/07/17 21:00 01/10/17 08:08 Colace Cap* PO 100 mg BID ZIAN Administration Enalapril Maleate 10 mg 01/09/17 09:00 01/10/17 08:08 Vasotec Tab* PO 10 mg DAILY ZAIN Administration Gabapentin 300 mg 01/07/17 21:00 01/10/17 08:08 Neurontin Cap(*) PO 300 mg BID ZAIN Administration Lactated Ringer's 1,000 mls @ 125 mls/hr 01/07/17 12:00 01/08/17 00:53 Lactated Ringers 1000 Ml Bag* IV 125 mls/hr PER RATE ZAIN Administration Insulin Glargine 45 units 01/08/17 21:00 01/10/17 08:10 Lantus(*) SUBCUT 45 unit BID ZAIN Administration Insulin Human Lispro 0 units 01/07/17 13:00 01/10/17 08:09 Humalog* SUBCUT 3 units ACHS ZAIN Administration Protocol Magnesium Hydroxide 30 ml 01/08/17 11:48 01/09/17 08:13 Milk Of Magnesia Liq* PO 30 ml Q6H PRN Administration constipation Metoprolol Tartrate 25 mg 01/07/17 18:00 01/09/17 17:45 Lopressor Tab* PO 25 mg QPM ZAIN Administration Metoprolol Tartrate 50 mg 01/08/17 09:00 01/10/17 08:08 Lopressor Tab* PO 50 mg QAM ZAIN Administration Morphine Sulfate 2 mg 01/07/17 23:00 01/09/17 03:29 Morphine Inj (Syringe)* IV 2 mg Q30M PRN Administration PAIN - UNCONTROLLED Multivitamins 1 tab 01/08/17 09:00 01/10/17 08:08 Theragran Tab* PO 1 tab DAILY ZAIN Administration Omeprazole 20 mg 01/08/17 09:00 01/10/17 08:08 Prilosec Cap* PO 20 mg DAILY ZAIN Administration Ondansetron HCl 4 mg 01/07/17 23:00 01/08/17 23:55 Zofran Inj* IV 4 mg Q6H PRN Administration nausea Oxycodone HCl 10 mg 01/07/17 23:00 01/09/17 12:33 Roxycodone Tab* PO 10 mg Q4H PRN Administration PAIN - SEVERE Oxycodone/Acetaminophen 1 tab 01/07/17 23:00 Percocet 5/325 Tab* PO Q3H PRN PAIN - MILD TO MODERATE Oxycodone/Acetaminophen 2 tab 01/07/17 23:00 01/10/17 08:18 Percocet 5/325 Tab* PO 2 tab Q3H PRN Administration PAIN - MODERATE TO SEVERE Scopolamine 1 patch 01/07/17 09:30 Transderm-Scop 1.5 Mg Patch* TRANSDERM Q72H PRN NAUSEA/VOMITING
--- NOTE | 2017-01-10 17:20 | PN ---
Subjective Date of Service: 01/10/17 Interval History: Patient was discharged this am by orthopedic surgery service. Reviewed labs, vitals, and nursing notes. FBG down to 176 mg/dl this am. Recommended patient continue to titrate up Lantus at home. Instructions included in discharge packet. No acute medical concerns at the time of discharge. Recommend close PCP follow up for further management of DM. Objective Vital Signs 01/09/17 01/09/17 01/09/17 17:44 19:22 19:44 Temperature 98.2 F Pulse Rate 99 Respiratory 18 16 18 Rate Blood Pressure 152/77 (mmHg) O2 Sat by Pulse 95 Oximetry 01/09/17 01/09/17 01/09/17 22:11 22:15 23:59 Temperature 99.8 F Pulse Rate 92 Respiratory 18 18 18 Rate Blood Pressure 130/66 (mmHg) O2 Sat by Pulse 96 Oximetry 01/10/17 01/10/17 01/10/17 00:11 03:29 04:02 Temperature 98.6 F Pulse Rate 98 Respiratory 18 18 18 Rate Blood Pressure 143/65 (mmHg) O2 Sat by Pulse 96 Oximetry 01/10/17 01/10/17 01/10/17 05:29 08:00 08:08 Temperature 101.1 F Pulse Rate 114 Respiratory 18 16 16 Rate Blood Pressure 165/75 (mmHg) O2 Sat by Pulse 97 Oximetry 01/10/17 01/10/17 01/10/17 08:18 08:34 11:34 Temperature 98.6 F Pulse Rate Respiratory 16 16 Rate Blood Pressure (mmHg) O2 Sat by Pulse Oximetry Oxygen Devices in Use Now: None Result Diagrams: 01/10/17 06:16 01/08/17 06:36 Assess/Plan/Problems-Billing Assessment: This is a 56 yo gentleman with obesity, poorly controlled DM, HTN, peripheral neuropathy, COPD, and LAI compliant with CPAP who is s/p L TKR. Hospitalists comanaging for multiple comorbid conditions. - Patient Problems (1) S/P TKR (total knee replacement) Comment: POD #2 dc planning, pain control and DVT prophylaxis per ortho (2) IDDM (insulin dependent diabetes mellitus) Comment: Poorly controlled HgbA1c 11.3% Noted hyperglycemia post-op Lasntus increased to 45U bid with positive effect, recommend continuing to titrate up by 3-5 U every 3-5 days Cont SS Humalog (3) Constipation Comment: Patient's complaints of nausea and bloating is likely due to constipation Patient has utilized 2 doses of mag citrate without good effect He would like to try a suppository which has been ordered for him (4) LAI (obstructive sleep apnea) Comment: Using CPAP from home (5) COPD (chronic obstructive pulmonary disease) Comment: No acute exacerbation No inhaled medications noted on home medication list (6) Peripheral neuropathy (7) HTN (hypertension) Comment: Moderate HTN today FILIPPO-I has been restarted Cont amlodipine (8) Obesity Comment: BMI 33 Status and Disposition: DC planning per ortho, no acute medical concerns. Hospitalists will continue to follow along.
--- NOTE | 2017-01-10 17:25 | PN ---
Hospitalist Progress Note Patient was discharged this am by orthopedic surgery service. Reviewed labs, vitals, and nursing notes. FBG down to 176 mg/dl this am. Recommended patient continue to titrate up Lantus at home. Instructions included in discharge packet. No acute medical concerns at the time of discharge. Recommend close PCP follow up for further management of DM.
--- NOTE | 2017-01-11 02:31 | DS ---
DISCHARGE SUMMARY: DATE OF ADMISSION: DATE OF DISCHARGE: 01/10/17 PROVIDER: Dr. Owen Perez. PRINCIPAL DIAGNOSIS: Left knee end-stage osteoarthritis, status post left total knee arthroplasty, 01/07/17. PRINCIPAL PROCEDURE: Left total knee arthroplasty, 01/07/17. CONSULTATIONS: 1. Physical therapy. 2. Occupational therapy. 3. Medicine. HISTORY OF PRESENT ILLNESS: Please refer to history and physical. HOSPITAL COURSE: The patient was admitted on 01/07/17 and underwent a left total knee arthroplasty. He tolerated the procedure well and there were no complications. The patient had spinal anesthesia with IV sedation and was quite comfortable on the immediate postoperative period. On postoperative day # 1, the patient's H and H were 13.2 and 40. His dressing was clean, dry, and intact, and he was neurovascularly intact with good sensation distal to the left knee. He can demonstrate positive dorsiflexion and plantar flexion with good strength. Participation is physical and occupational therapy was begun. Pain management was well controlled with p.o. Percocet. His urinary catheter was removed on postoperative day #2 without difficulty and he was able to void spontaneously. The dressing was changed and the wound was found to be benign with minimal drainage and erythema. Corona were intact. Vital signs were stable and the patient was afebrile. By postoperative day #3, the bladder had normalized and the patient was cleared by Physical Therapy for safe discharge to go home with home services. The patient had a small bowel motion; however, was still feeling a bit constipated. However, he was educated that he should continue to use stool softeners as well as use possible suppositories and laxatives to help with his bowel motion as well as to increase his fluid intake. He will continue with the exercises learned from Physical Therapy and arrangements were made for visiting home physical therapy as well. At discharge , the patient's H and H were 12.2 and 36. Vital signs were stable. The patient was discharged with a prescription for aspirin 325 mg p.o. daily for DVT prophylaxis. He will resume his home medications as indicated on discharge summary; however, will increase his Lantus dose from 40 units to 45 units b.i.d. per medicine protocol. Kamini and sutures will be removed by the visiting home nurses in approximately 10 to 14 days. MEDICATIONS AT DISCHARGE: 1. Aspirin 325 mg p.o. daily. 2. Dulcolax suppository 10 mg per rectum daily p.r.n. 3. Flexeril 10 mg p.o. q.h.s. p.r.n. 4. Dulcolax 100 mg p.o. b.i.d. 5. Gabapentin 300 mg p.o. b.i.d. 6. Lantus 45 units subcu b.i.d. 7. Metoprolol 25 mg p.o. q.p.m. 8. Metoprolol 50 mg p.o. q.a.m. 9. Omeprazole 20 mg p.o. daily. 10. Oxycodone 5 mg p.o. q.4 hours 1 to 2 tablets as needed for pain. 11. Lotrel 5/20 mg 1 tablet p.o. b.i.d. 12. Ibuprofen 800 mg p.o. q.6 hours p.r.n. 13. Tramadol 100 mg p.o. four times a day p.r.n. CONDITION: Stable. DISPOSITION: Home with home health PT. FOLLOWUP: The patient will follow up with Dr. Perez in approximately 4 to 6 weeks at [facility] Orthopedics. BRYAN GARCIA [id number]/CPS #: [id number] MTDD
== END 2017-01-10 12:35 | disposition home health service (06) | DRG 470 ==
LOC: AA 05:56 → SSU 15:05
PROVIDERS: ADMIT Orthopaedic Surgery; ATTEND Orthopaedic Surgery
PROC: 0SRD0J9 Replacement of Left Knee Joint with Synthetic Substitute, Cemented, Open Approach (ICD-10-PCS; principal; 2017-01-07 07:30)
DX: M17.12 Unilateral primary osteoarthritis, left knee (principal); E11.40 Type 2 diabetes mellitus with diabetic neuropathy, unspecified; J44.0 Chronic obstructive pulmonary disease with (acute) lower respiratory infection; D62 Acute posthemorrhagic anemia; E11.65 Type 2 diabetes mellitus with hyperglycemia; Z79.82 Long term (current) use of aspirin; Z79.4 Long term (current) use of insulin; E66.9 Obesity, unspecified; I10 Essential (primary) hypertension; E78.5 Hyperlipidemia, unspecified; K59.00 Constipation, unspecified; G47.33 Obstructive sleep apnea (adult) (pediatric); Z68.33 Body mass index [BMI] 33.0-33.9, adult; R11.0 Nausea; M48.00 Spinal stenosis, site unspecified; Z96.651 Presence of right artificial knee joint; Z83.3 Family history of diabetes mellitus; Z80.1 Family history of malignant neoplasm of trachea, bronchus and lung; Z87.891 Personal history of nicotine dependence; F10.20 Alcohol dependence, uncomplicated; Y90.9 Presence of alcohol in blood, level not specified; M54.2 Cervicalgia
CPT/HCPCS: 36415; 80048; 83036; 85014; 85018; 88305; 88311; A9270-GY; C1776; J0690; J1100; J1170; J2250; J2270; J2300; J2405; J2704; J3010